=== PATIENT | male | born 1970 | race Caucasian/White ===

== ENCOUNTER 2025-03-27 07:28 | Outpatient (CLI) | payer BC | END 2025-03-27 07:29 | disposition home or self-care (01) | LOC: SCSRAD 07:28 | PROVIDERS: ATTEND Orthopaedic Surgery | DX: M54.50 Low back pain, unspecified (principal); M51.369 Other intervertebral disc degeneration, lumbar region without mention of lumbar back pain or lower extremity pain; Z98.1 Arthrodesis status | CPT/HCPCS: 72100 ==

== ENCOUNTER 2025-07-16 14:55 | Outpatient (CLI) | payer BC | END 2025-07-16 14:56 | disposition home or self-care (01) | LOC: SCSRAD 14:55 | PROVIDERS: ATTEND Orthopaedic Surgery | DX: M54.50 Low back pain, unspecified (principal); M47.816 Spondylosis without myelopathy or radiculopathy, lumbar region; Z98.890 Other specified postprocedural states | CPT/HCPCS: 72100 ==